=== PATIENT | male | born 1970 | race Caucasian/White ===

== ENCOUNTER 2021-01-07 06:56 | Observation (INO) | payer OTHER ==
[2021-01-07 07:36] LABS: #Basophils 0.1 10x3/uL (0.0-0.2); #Eosinphils 0.3 10x3/uL (0.0-0.5); #Monocytes 0.8 10x3/uL (0.0-1.1); #Neutrophils 3.5 10x3/uL (1.5-8.4); %Eosinophils 3.7 % (0.0-6.0); %Lymphocytes 30.6 % (18.0-47.0); %Monocytes 12.1 % (0.0-10.0); %Neutrophils 52.5 % (40.0-75.0); Hemoglobin 16.8 g/dL (13.5-17.5); Mean Corpuscular HGB CONC 35.5 g/dL (32.0-36.0); Mean Corpuscular Hemoglobin 31.9 pg (27.0-33.0); Mean Corpuscular Volume 89.8 fl (81.2-95.1); Platelet Count 311 10x3/uL (150-450); RBC Distribution Width 12.9 % (11.5-14.5); Red Blood Cell (RBC) Count 5.27 10x6/uL (4.32-5.72); White Blood Cell (WBC) Count 6.7 10x3/uL (3.5-10.5)
[2021-01-07 07:49] LABS: PTT 30.2 sec (22.0-33.0); Prothrombin Time 10.8 sec (9.5-12.1)
[2021-01-07 07:51] LABS: ALT (SGPT) 55 U/L (8-55); AST (SGOT) 40 U/L (5-34); Albumin 4.3 g/dL (3.5-5.0); BUN (Urea Nitrogen) 17 mg/dL (8.4-25.7); Bilirubin, Total 0.8 mg/dL (0.2-1.2); Calc. Creatinine Clearance 0 mL/min (70-130); Calcium 9.4 mg/dL (7.8-10.44); Carbon Dioxide 23 mmol/L (22-29); Globulin 4.8 g/dL (2.4-3.5); Glucose 110 mg/dL (70-105); Protein, Total 9.1 g/dL (6.0-8.3)
[2021-01-07] MEDS ORDERED: Aspirin Chewable 81 MG TAB ONE (08:00)
[2021-01-07 08:11] LABS: Chloride 105 mmol/L (98-107); Potassium 3.7 mmol/L (3.5-5.1); Sodium 139 mmol/L (136-145)
[2021-01-07 08:14] LABS: Anion Gap 15 mmol/L (10-20)
[2021-01-07 08:17] LABS: Alkaline Phosphatase 146 U/L (40-110)
[2021-01-07 11:45] VITALS: BMI 31.4
[2021-01-07] MEDS ORDERED: FLU VACC QS2021-22(6MOS UP)/PF 60 MCG/0.5 ML SYRINGE IM ONE (12:00)
[2021-01-07] MEDS ORDERED: Acetaminophen 325 MG TAB PO PRN (12:39)
[2021-01-07] MEDS ORDERED: Ondansetron ODT 4 MG TAB PO PRN (12:39)
[2021-01-07] MEDS ORDERED: hydrALAZINE 20 MG/ML VIAL SLOW IVP PRN (12:39)
[2021-01-07] MEDS ORDERED: Electrolyte Replacement Protocol 1 EACH FS SCH (13:00)
[2021-01-07] MEDS ORDERED: Enoxaparin Sodium 40 MG/0.4 ML SYRINGE SC SCH (13:00)
[2021-01-07] MEDS ORDERED: Magnesium 2 GM/50 ML 2 GM in Premix Bag 1 BAG IVPB SCH (13:15)
[2021-01-07] MEDS: Brimonidine Tartrate 0.2% Ophth Soln 5 ml Bottle EA EYE SCH ×2 (14:49→21:32)
[2021-01-07] MEDS ORDERED: Atorvastatin Calcium 40 MG TAB PO SCH (21:00)
[2021-01-07] MEDS: Timolol 0.5% Ophth Soln 5 ml Bottle EA EYE SCH (21:32)
[2021-01-08] MEDS ORDERED: Melatonin 3 MG TAB PO SCH (00:15)
[2021-01-08 05:32] LABS: #Basophils 0.1 10x3/uL (0.0-0.2); #Eosinphils 0.2 10x3/uL (0.0-0.5); #Monocytes 1.2 10x3/uL (0.0-1.1); #Neutrophils 4.9 10x3/uL (1.5-8.4); %Basophils 0.6 % (0.0-2.0); %Eosinophils 2.5 % (0.0-6.0); %Lymphocytes 22.7 % (18.0-47.0); %Neutrophils 59.8 % (40.0-75.0); Hemoglobin 15.9 g/dL (13.5-17.5); Mean Corpuscular HGB CONC 34.9 g/dL (32.0-36.0); Mean Corpuscular Hemoglobin 31.9 pg (27.0-33.0); Mean Corpuscular Volume 91.6 fl (81.2-95.1); Mean Platelet Volume 10.2 fl (7.4-10.4); Platelet Count 319 10x3/uL (150-450); Red Blood Cell (RBC) Count 4.98 10x6/uL (4.32-5.72); White Blood Cell (WBC) Count 8.2 10x3/uL (3.5-10.5)
[2021-01-08 05:54] LABS: Anion Gap 13 mmol/L (10-20); BUN (Urea Nitrogen) 18 mg/dL (8.4-25.7); Calc. Creatinine Clearance 146 mL/min (70-130); Calcium 9.3 mg/dL (7.8-10.44); Carbon Dioxide 25 mmol/L (22-29); Cardiac Risk 4.1 (Less than 4.5); Chloride 107 mmol/L (98-107); Cholesterol 144 mg/dl (< 200 Desired); Glucose 105 mg/dL (70-105); HDL Cholesterol 35 mg/dL (>60 Neg Risk); LDL Cholesterol, Calculated 90 mg/dL; Magnesium 2.3 mg/dL (1.6-2.6); Potassium 3.6 mmol/L (3.5-5.1); Sodium 141 mmol/L (136-145); Triglycerides 94 mg/dL (Less than 150)
[2021-01-08] MEDS ORDERED: Aspirin 325 mg Enteric Coated Tablet PO SCH (09:00)
[2021-01-08] MEDS ORDERED: Enoxaparin Sodium 40 MG/0.4 ML SYRINGE SC SCH (09:00)
[2021-01-08] MEDS: Timolol 0.5% Ophth Soln 5 ml Bottle EA EYE SCH (10:16)
[2021-01-08] MEDS: Brimonidine Tartrate 0.2% Ophth Soln 5 ml Bottle EA EYE SCH (10:17)
[2021-01-08 12:16] VITALS: BP 159/100; TEMP 96.8
== END 2021-01-08 15:00 ==
LOC: EEVIPCON 06:56 → CSHERS 06:56 → CSHTELE 09:49
PROVIDERS: ADMIT Internal Medicine; ATTEND Hospitalist
DX: G51.0 Bell's palsy (principal); H57.02 Anisocoria; I10 Essential (primary) hypertension; H40.9 Unspecified glaucoma; K21.9 Gastro-esophageal reflux disease without esophagitis; Z79.899 Other long term (current) drug therapy
CPT/HCPCS: 36416; 70450; 70496; 80048; 80053; 80061; 83735; 84484; 85025; 85610; 85730; 90471; 90686; 93005; 93306; 96372; 96374; G0008; G0378; J1650; J3475